=== PATIENT | female | born 1995 | race Caucasian/White ===

== ENCOUNTER 2016-12-12 21:22 | Emergency (ER) | payer OTHER ==
[2016-12-12 21:29] VITALS: BP 112/63
[2016-12-12 22:03] LABS: Hematocrit 39 % (35-47); Hemoglobin 13.5 g/dl (12.0-16.0); Mean Corpuscular HGB Conc 34 g/dl (31-36); Mean Corpuscular Hemoglobin 31 pg (27-31); Mean Corpuscular Volume 92 fL (80-97); Mean Platelet Volume 8 um3 (7.4-10.4); Red Blood Count 4.29 10^6/ul (4.0-5.4); Red Cell Distribution Width 13 % (10.5-15); White Blood Count 12.2 10^3/ul (3.5-10.8)
[2016-12-12 22:04] LABS: Add Diff/Slide Review? Slide Review Added; Comments Flag Yes
--- NOTE | 2016-12-12 22:06 | ED ---
- HPI Summary HPI Summary: 21F who is 14 weeks LMP Nov presents with constant back and lower quadrant abdominal pain for 2 days. She states the pain has been getting worst. She spoke with obgyn [email or web address] of [place] told her to take Tylenol and if got worst to go to ED. She denies any vaginal discharge or bleeding. She denies any dysuria but does admit to pressure when urinates. She has never experienced this pain before. She has a history of constipation but states that she had a normal BM today. She denies any previous abdominal surgeries. She denies any fever, n/v/d. She describes the pain as a rope around her waist that is pulling tight. - History of Current Complaint Chief Complaint: EDAbdPain Stated Complaint: ABD AND BACK PAIN/3 MONTHS PREG Time Seen by Provider: 12/12/16 21:38 Pain Intensity: 6 - Assessment Hx Now: Yes - 10-11 WEEKS SAB: 0 IEA: 0 - Additional Pertinent History Maternal Blood Type and Rh: O Positive - Allergies/Home Medications Allergies/Adverse Reactions: Allergies Allergy/AdvReac Type Severity Reaction Status Date / Time No Known Allergies Allergy Verified 10/09/14 21:57 PMH/Surg Hx/FS Hx/Imm Hx Endocrine/Hematology History: Reports: Hx Thyroid Disease - pt states has not taken synthriod in 4 days History: Reports: Other Problems/Disorders - Hx of UTI Neurological History: Reports: Other Neuro Impairments/Disorders - Hx of Asperger Psychiatric History: Reports: Hx Anxiety, Hx Attention Deficit Hyperactivity Disorder, Hx Eating Disorder - restricting, Hx Depression, Hx Community Mental Health Tx - Sees Anya Maki and Dr. Mendez at [facility], Hx Substance Abuse, Other Psychiatric Issues/Disorders - aspergers Denies: Hx of Violent Episodes Against Others - Surgical History Surgery Procedure, Year, and Place: Hx of two C-sec - Immunization History Date of Influenza Vaccine: 06/2016 Infectious Disease History: No Infectious Disease History: Denies: Traveled Outside the [place] in Last 30 Days - Family History Known Family History: Positive: Cardiac Disease - Social History Alcohol Use: Occasionally Substance Use Type: Reports: None Smoking Status (MU): Light Every Day Tobacco Smoker Have You Smoked in the Last Year: Yes Review of Systems Negative: Fever Negative: Chest Pain Negative: Shortness Of Breath Positive: Abdominal Pain. Negative: Vomiting, Diarrhea, Nausea All Other Systems Reviewed And Are Negative: Yes Physical Exam - Physical Exam Triage Information Reviewed: Yes Vital Signs Reviewed: Yes Appearance: Positive: Well-Appearing Skin: Positive: Warm, Dry ENT: Positive: Normal ENT inspection, TMs normal Respiratory/Lung Sounds: Positive: Clear to Auscultation, Breath Sounds Present Cardiovascular: Positive: Normal, RRR Abdomen Description: Positive: Soft, Other: - diffusely tender to palpation,. Negative: CVA Tenderness (R), CVA Tenderness (L), Guarding Diagnostics - Vital Signs Vital Signs Temp Pulse Resp BP Pulse Ox 12/12/16 21:24 98.0 F 108 16 112/63 99 - Laboratory Result Diagrams: 12/12/16 21:44 12/12/16 21:44 Lab Statement: Any lab studies that have been ordered have been reviewed, and results considered in the medical decision making process. Course/Dx - Course Course Of Treatment: 21F @14 weeks presents with lower abdominal pain and back pain for 2 days, denies any other symptoms, has never had this pain before, pain is getting worst and is not relieved with tyenlol. on exam diffusely tender abdomen. will get labs and HR, HR 140. labs : elevated wbc 12, crp 40, discussed with dr gee states does not sound ob related, common to have elevated wbc in , does not seem like gallbladder or appendix due to diffuse abdominal pain, urine returned and has uti, discussed that has some protein with dr fox and states due to uti and not being hypertensive is not significant at this time, will treat with macrobid and have call obgyn tomorrow, patient understand and agrees with plan - Differential Diagnosis/HQI/PQRI: Appendicitis, Cholecystitis, Intrauterine , UTI - Diagnoses Provider Diagnoses: UTI in , Abdominal pain - Provider Notifications Discussed Care Of Patient With: dr gee Time Discussed With Above Provider: 22:44 - does not seem like pain is related, have call office tomorrow to see how doing Discharge - Discharge Plan Condition: Good Disposition: HOME Prescriptions: Nitrofurantoin Monohyd Macro [Macrobid] 100 mg PO BID #13 cap Patient Education Materials: Urinary Tract Infection in (ED) Referrals: Danita Nieves MD [Primary Care Provider] - Additional Instructions: Take macrobid twice a day for 7 days, first dose given in ED After course of antibiotics go to primary to have repeat culture done to make sure UTI resolved Take Tylenol every 6 hours for pain as needed Call obgyn tomorrow to discuss symptoms Return to ED if develop vaginal bleeding, fever, or any new or worsening symptoms
[2016-12-12 22:16] LABS: Albumin 3.8 g/dL (3.2-5.2); BUN/Creatinine Ratio 11.3 (8-20); Calcium 9.5 mg/dL (8.6-10.3); EGFR African American 153.4 (>60); EGFR Non-African American 119.3 (>60); Globulin 3.5 g/dL (2-4); Potassium 3.6 mmol/L (3.5-5.0); Total Bilirubin 0.7 mg/dL (0.2-1.0); Total Protein 7.3 g/dL (6.4-8.9)
[2016-12-12 22:32] LABS: Urine Bacteria 1+ (Absent); Urine Bilirubin Negative (Negative); Urine Glucose Negative (Negative); Urine Nitrite Positive (Negative)
[2016-12-12] MEDS ORDERED: Nitrofurantoin Macrocrystals* 100 MG CAP PO ONE (22:37)
--- NOTE | 2016-12-15 10:08 | PN ---
Progress Note - Progress Note Note: Patient seen on 12/12/16 diagnosed with a UTI and started on Macrobid. Urine culture preliminary results grew E coli >100,000. Patient was discharged on Macrobid. Waiting for final results and susceptibility results before contacting patient to see if symptoms have resolved. No change in medication needed at this time.
--- NOTE | 2016-12-16 10:11 | PN ---
Progress Note - Progress Note Note: Talked to patient on phone at 10:07am after receiving final urine culture results. Patient states her symptoms have been improving each day. She followed up with her primary care doctor who she states changed her medication. She was prescribed Nitrofurantoin through ED and had it switched to what she thinks is Bactrim. She was at work and was unsure of the antibiotic name. Both antibiotics showed that the e.coli was susceptible. Patient is aware of worsening signs and symptoms and told to return if needed. No further changes needed at this time.
== END 2016-12-12 23:00 | disposition home or self-care (01) ==
LOC: ED 21:22
DX: O23.42 Unspecified infection of urinary tract in pregnancy, second trimester (principal); Z3A.14 14 weeks gestation of pregnancy; R10.9 Unspecified abdominal pain
CPT/HCPCS: 36415; 80053; 81003; 81015; 85025; 86141; 87077; 87086; 87186; 99282; A9270-GY

== ENCOUNTER 2017-01-06 19:45 | Emergency (ER) | payer MEDICAID, OTHER ==
--- NOTE | 2017-01-06 20:27 | UC ---
UC General HPI - HPI Summary HPI Summary: The patient comes in today for: 1. Headaches, stomach ache, rhinitis, sore throat, nausea, dizziness ( spinning sensation), blurred vision, muscle pain: Onset: 8 days. Palliative/provocative: Riding in the car makes it worse (nausea is worse). Concentration makes it worse. Quality: Ache, nausea, soreness, Region: head, muscle. Severity: 4/10 Time: headache and sore throat is constant. Muscle aches come and go. Associated symptoms: : 18 weeks as best she can tell. Chest pain: The male jewelry sorter states that the patient told him that starting about 3 PM every time she breathed out, it felt like "hammers hitting" her chest. She will have this "every now and then" A0 with LMP of 11-16. Palpitations: None. Blood clotting disease: (-) in her and (-) in her family. * - History of Current Complaint Chief Complaint: UCRespiratory Stated Complaint: PREG & DIZZY,CHEST DISCOMFORT Time Seen by Provider: 01/06/17 19:58 Hx Obtained From: Patient, Family/Pelt Shearer - Allergy/Home Medications Allergies/Adverse Reactions: Allergies Allergy/AdvReac Type Severity Reaction Status Date / Time No Known Allergies Allergy Verified 01/06/17 20:06 PMH/Surg Hx/FS Hx/Imm Hx Previously Healthy: No Endocrine History Of: Reports: Thyroid Disease - pt states has not taken synthriod in 4 days, Hypothyroidism Denies: Diabetes, Hyperthyroidism, Dyslipidemia Cardiovascular History Of: Denies: Cardiac Disorders, Hypertension, Pacemaker/ICD, Myocardial Infarction , Congestive Heart Failure, Atrial Fibrillation, Deep Vein Thrombosis, Bleeding Disorders Respiratory History Of: Denies: COPD, Asthma, Bronchitis, Pneumonia, Pulmonary Embolism GI/ History Of: Denies: Gastroesophageal Reflux, Ulcer, Gastrointestinal Bleed, Gall Bladder Disease, Kidney Stones, Diverticulitis, Renal Disease, Urosepsis Neurological History Of: Denies: TIA, CVA, Dementia, Seizures, Migraine Psychological History Of: Reports: Anxiety, Depression Denies: Bipolar Disorder, Schizophrenia, Post Traumatic Stress Disorder Cancer History Of: Denies: Lung Cancer, Colorectal Cancer, Breast Cancer, Prostate Cancer, Cervical Cancer Other History Of: Negative For: HIV, Hepatitis B, Hepatitis C, Anticoagulant Therapy - Surgical History Surgical History: Yes Surgery Procedure, Year, and Place: Hx of two C-sec - Family History Known Family History: Negative: Cardiac Disease, Hypertension, Blood Disorder - Social History Occupation: Employed Full-time Alcohol Use: None Substance Use Type: None Smoking Status (MU): Light Every Day Tobacco Smoker Amount Used/How Often: 4 per day Have You Smoked in the Last Year: Yes Household Exposure Type: Cigarettes - Immunization History Most Recent Influenza Vaccination: fall 2015 Most Recent Tetanus Shot: years Most Recent Pneumonia Vaccination: never Review of Systems Constitutional: Negative Skin: Negative Eyes: Negative ENT: Sore Throat, Nasal Discharge - Clear Respiratory: Cough - N Cardiovascular: Chest Pain - Very slightly. Gastrointestinal: Negative Genitourinary: Negative Musculoskeletal: Arthralgia - Lower abdomen and up the left side., Myalgia All Other Systems Reviewed And Are Negative: Yes Physical Exam Triage Information Reviewed: Yes Appearance: Well-Appearing, No Pain Distress, Well-Nourished Vital Signs: Initial Vital Signs Temp 98.2 F 01/06/17 19:57 Pulse 103 01/06/17 19:57 Resp 103 01/06/17 19:57 BP 104/78 01/06/17 19:57 Pulse Ox 98 01/06/17 19:57 Vital Signs Reviewed: Yes Eyes: Positive: Conjunctiva Clear. Negative: Discharge ENT: Positive: Hearing grossly normal, Pharyngeal erythema. Negative: TM bulging, TM dull, TM red, Tonsillar swelling, Tonsillar exudate Dental: Negative: Gross Decay/Caries @, Dental Fracture @ Neck: Positive: Supple, Nontender, No Lymphadenopathy. Negative: Nuchal Rigidity Respiratory: Positive: Lungs clear, No respiratory distress, No accessory muscle use, Other: - No chest tenderness. Despite her complaining of this "hammer" chest pain she appears comfortable sitting on cot.. Negative: Accessory muscle use, Rhonchi, Stridor, Wheezing Cardiovascular: Positive: RRR, No Murmur Abdomen Description: Positive: No Organomegaly, Soft. Negative: Nontender - She has very mild tenderness to palpation of the left lower quadrant. There was no rebound or percussion tenderness., Distended, Guarding Musculoskeletal: Positive: Strength Intact, ROM Intact, No Edema Neurological: Positive: Alert Psychological: Positive: Age Appropriate Behavior, Consolable Skin: Negative: rashes, breakdown Diagnostics - Laboratory Diagnostic Studies Completed/Ordered: Rapid flu: (-). EKG: Rate: 103. Rhythm : sinus. Ectopy: None. Acute changes: None. No obvious [id number] Course/Dx - Course Course Of Treatment: Patient was told that there are many things that may cause chest pain and one I would be worried about is pulmonary embolism. She was told that we are not able to rule this out and to do so, she would have to go to the ER. She agreed to go by private car. - Differential Dx - Multi-Symptom Provider Diagnoses: Chest pain. 18 week . Viral syndrome - Physician Notifications Discussed Patient Care With: Meagan Diaz Time Discussed With Above Provider: 21:21 Discharge - Discharge Plan Condition: Stable Disposition: AGAINST MEDICAL ADVICE Additional Instructions: Patient left by private car to go to [facility].
[2017-01-06 21:24] VITALS: BP 105/67
== END 2017-01-06 21:52 | disposition left against medical advice (07) ==
LOC: UCEAST 19:45
DX: O26.892 Other specified pregnancy related conditions, second trimester (principal); Z3A.18 18 weeks gestation of pregnancy; R07.89 Other chest pain; B34.9 Viral infection, unspecified; F17.210 Nicotine dependence, cigarettes, uncomplicated
CPT/HCPCS: 87502; 93005; 99212; G0463

== ENCOUNTER 2017-01-06 21:39 | Emergency (ER) | payer MEDICAID ==
[2017-01-06] MEDS ORDERED: Azithromycin TAB* 250 MG PO ONE (23:58)
[2017-01-06] MEDS ORDERED: Cyclobenzaprine TAB* 10 MG PO ONE (23:59)
--- NOTE | 2017-01-07 00:01 | ED ---
Karen Jha Claudia, scribed for Samira Virk MD on 01/06/17 at 2303 . Complex/Multi-Sys Presentation - HPI Summary HPI Summary: 21 year old female presents to the ED with multi-Sx. Pt notes Sx for the past week but worsening over the past few days. Pt admits to cough, sinus pressure, nasal congestion. She also notes aggravated pounding pressure in her chest during expiration. Pt is 18 weeks para 3 2. Pt also admits to dizziness earlier today and a pulled muscle in her abdomen after exerting herself by helping her boyfriend put a screen in the window. Pt notes the pain in her abdomen is movement related. Pt notes that the SOB has been accompanied by the cold Sx and she denies any calf pain or PMHx of FHx of DVT or PE. - History Of Current Complaint Chief Complaint: EDFluSymptoms Time Seen by Provider: 01/06/17 22:13 Hx Obtained From: Patient Onset/Duration: Lasting Weeks, Still Present Timing: Constant Associated Signs And Symptoms: Positive: SOB, Cough, Other - nasal discharge, sinus pressure - Allergies/Home Medications Allergies/Adverse Reactions: Allergies Allergy/AdvReac Type Severity Reaction Status Date / Time No Known Allergies Allergy Verified 01/06/17 20:06 PMH/Surg Hx/FS Hx/Imm Hx Previously Healthy: Yes Endocrine/Hematology History: Reports: Hx Thyroid Disease - pt states has not taken synthriod in 4 days Denies: Hx Anticoagulant Therapy, Hx Diabetes Cardiovascular History: Denies: Hx Congestive Heart Failure, Hx Deep Vein Thrombosis, Hx Hypertension , Hx Myocardial Infarction, Hx Pacemaker/ICD Respiratory History: Denies: Hx Asthma, Hx Chronic Obstructive Pulmonary Disease (COPD), Hx Lung Cancer, Hx Pneumonia, Hx Pulmonary Embolism GI History: Denies: Hx Gall Bladder Disease, Hx Gastrointestinal Bleed, Hx Ulcer, Hx Urosepsis History: Reports: Other Problems/Disorders - Hx of UTI Denies: Hx Kidney Stones, Hx Renal Disease Neurological History: Reports: Other Neuro Impairments/Disorders - Hx of Asperger Denies: Hx Dementia, Hx Migraine, Hx Seizures, Hx Transient Ischemic Attacks (TIA) Psychiatric History: Reports: Hx Anxiety, Hx Attention Deficit Hyperactivity Disorder, Hx Eating Disorder - restricting, Hx Depression, Hx Community Mental Health Tx - Sees Anya Maki and Dr. Mendez at [facility], Hx Substance Abuse, Other Psychiatric Issues/Disorders - aspergers Denies: Hx Schizophrenia, Hx Bipolar Disorder, Hx of Violent Episodes Against Others - Surgical History Surgery Procedure, Year, and Place: Hx of two C-sec - Immunization History Date of Influenza Vaccine: 06/2016 Infectious Disease History: No Infectious Disease History: Denies: Traveled Outside the [place] in Last 30 Days - Family History Known Family History: Negative: Cardiac Disease, Hypertension, Blood Disorder - Social History Lives: With Family Alcohol Use: None Substance Use Type: Reports: None Smoking Status (MU): Light Every Day Tobacco Smoker Amount Used/How Often: 4 per day Have You Smoked in the Last Year: Yes Review of Systems Constitutional: Negative Eyes: Negative ENT: Other - sinus pressure Positive: Nasal Discharge Cardiovascular: Negative Positive: Shortness Of Breath, Cough Gastrointestinal: Negative Genitourinary: Negative Positive: Other - muslce ache to her left abdomen Skin: Negative Neurological: Negative Psychological: Normal All Other Systems Reviewed And Are Negative: Yes Physical Exam Triage Information Reviewed: Yes Vital Signs On Initial Exam: Initial Vitals Temp Pulse Resp BP Pulse Ox 97.7 F 90 18 105/60 100 01/06/17 21:50 01/06/17 21:50 01/06/17 21:50 01/06/17 21:50 01/06/17 21:50 Vital Signs Reviewed: Yes Appearance: Positive: Well-Appearing, No Pain Distress Skin: Positive: Warm, Skin Color Reflects Adequate Perfusion, Dry Eyes: Positive: EOMI, MARIBELL ENT: Positive: Pharynx normal, TMs normal Neck: Positive: Supple, Nontender Respiratory/Lung Sounds: Positive: Clear to Auscultation, Breath Sounds Present Cardiovascular: Positive: RRR. Negative: Murmur, Rub, Leg Edema Left, Leg Edema Right Abdomen Description: Positive: Nontender, Soft. Negative: Distended, Guarding Musculoskeletal: Positive: Strength/ROM Intact Neurological: Positive: Sensory/Motor Intact, Alert, Oriented to Person Place, Time, CN Intact II-III Psychiatric: Positive: Affect/Mood Appropriate - Houck Coma Scale Coma Scale Total: 15 Diagnostics - Vital Signs Vital Signs Temp Pulse Resp BP Pulse Ox 01/06/17 22:33 98 F 81 18 103/42 98 01/06/17 21:50 97.7 F 90 18 105/60 100 - Laboratory Lab Statement: Any lab studies that have been ordered have been reviewed, and results considered in the medical decision making process. Complex Multi-Symp Course/Dx Course Of Treatment: very much doubt pe in this pt with cp with cough with uri sxms x 8 days. covering with azithro and flexeril for muscle strain both safe with - Diagnoses Provider Diagnoses: Bronchitis, Muscle strain Discharge - Discharge Plan Condition: Stable Disposition: HOME Prescriptions: Azithromycin TAB* [Zithromax TAB (Z-RADHA) 250 mg #6 tabs] 250 mg PO DAILY #4 tab Cyclobenzaprine TAB* [Flexeril 10 MG TAB*] 10 mg PO TID PRN #14 tab PRN Reason: Spasms Referrals: Danita Nieves MD [Primary Care Provider] - The documentation as recorded by the Karen altamirano Claudia accurately reflects the service I personally performed and the decisions made by , Samira Virk MD.
[2017-01-07 00:22] VITALS: BP 108/58
== END 2017-01-07 00:22 | disposition home or self-care (01) ==
LOC: ED 21:39
DX: J40 Bronchitis, not specified as acute or chronic (principal); R42 Dizziness and giddiness; R06.02 Shortness of breath; R05 Cough; F17.210 Nicotine dependence, cigarettes, uncomplicated; T14.8 Other injury of unspecified body region; X58.XXXA Exposure to other specified factors, initial encounter; Y93.9 Activity, unspecified; Y92.9 Unspecified place or not applicable; Y99.9 Unspecified external cause status; Z34.82 Encounter for supervision of other normal pregnancy, second trimester
CPT/HCPCS: 99282; A9270-GY

== ENCOUNTER 2017-04-02 15:27 | Emergency (ER) | payer OTHER ==
[2017-04-02 16:02] VITALS: BP 108/63
--- NOTE | 2017-04-02 16:16 | UC ---
Skin Complaint HPI - HPI Summary HPI Summary: PT NOTICED A FAINT RED JULIANO ON HER RIGHT FOREARM TODAY AND THOUGHT IT MIGHT BE FROM A TICK SO CAME IN FOR EVAL. NOT PAINFUL OR ITCHY. SHE IS FEELING OTHERWISE WELL. NO LUNDY, FEVER, JOINT PAIN OR BODY ACHES. IS 30 WEEKS . DURING TRIAGE PT ASKED ROUTINE SCREENING QUESTION ABOUT FEELINGS OF SELF HARM AND PT RESPONDED "NOT NOW - IT'S TAKEN CARE OF". UPON FURTHER QUESTIONING PT REPORTS THAT SHE SEES A COUNSELOR AND A PSYCHIATRIST THROUGH [facility] WEEKLY. NEXT APPT IS THIS TUESDAY AT 3:15PM. SHE DOES NOT CURRENTLY HAVE ANY SI/HI. - History of Current Complaint Chief Complaint: UCSkin Time Seen by Provider: 04/02/17 16:07 Stated Complaint: TICK BITE Hx Obtained From: Patient Onset/Duration: Still Present Timing: Constant Current Severity: None Pain Intensity: 0 Pain Scale Used: 0-10 Numeric Location: Discrete - RIGHT FOREARM Aggravating: Nothing Alleviating: Nothing Associated Signs & Symptoms: Positive: Negative - Allergy/Home Medications Allergies/Adverse Reactions: Allergies Allergy/AdvReac Type Severity Reaction Status Date / Time No Known Allergies Allergy Verified 04/02/17 16:02 Home Medications: Home Medications Gabapentin CAP(*) [Neurontin 100 mg CAP(*)] 100 mg PO TID 04/02/17 [History Confirmed 04/02/17] Vitamin TAB* 1 tab PO DAILY 04/02/17 [History Confirmed 04/02/17] Review of Systems Constitutional: Negative Skin: Rash Respiratory: Negative Cardiovascular: Negative Gastrointestinal: Negative All Other Systems Reviewed And Are Negative: Yes PMH/Surg Hx/FS Hx/Imm Hx Endocrine History: Hypothyroidism Other History Of: Negative For: HIV, Hepatitis B, Hepatitis C, Anticoagulant Therapy - Surgical History Surgical History: Yes Surgery Procedure, Year, and Place: Hx of two C-sec - Family History Known Family History: Negative: Cardiac Disease, Hypertension, Blood Disorder - Social History Alcohol Use: None Substance Use Type: None Smoking Status (MU): Current Every Day Smoker Amount Used/How Often: 4 per day Have You Smoked in the Last Year: Yes Household Exposure Type: Cigarettes - Immunization History Most Recent Influenza Vaccination: fall 2015 Most Recent Tetanus Shot: years Most Recent Pneumonia Vaccination: never Physical Exam Triage Information Reviewed: Yes Appearance: Well-Appearing, No Pain Distress, Well-Nourished Vital Signs: Initial Vital Signs Temp 98.9 F 04/02/17 15:55 Pulse 84 04/02/17 15:55 Resp 16 04/02/17 15:55 BP 108/63 04/02/17 15:55 Pulse Ox 100 04/02/17 15:55 Vital Signs Reviewed: Yes Eyes: Positive: Conjunctiva Clear ENT: Positive: Hearing grossly normal Neck: Positive: Supple Respiratory: Positive: No respiratory distress, No accessory muscle use Cardiovascular: Positive: Pulses Normal Abdomen Description: Positive: Soft Musculoskeletal: Positive: No Edema Neurological: Positive: Alert Psychological: Positive: Age Appropriate Behavior Skin: Positive: Other - 1CM FAINT RED JULIANO RIGHT FOREARM. NO EXCORIATION. NOT TENDER. NOT INDURATED, Course/Dx - Diagnoses Provider Diagnoses: LIKELY LOCAL SKIN REACTION TO INSECT BITE Discharge - Discharge Plan Condition: Stable Disposition: HOME Patient Education Materials: Insect Bite or Sting (ED) Referrals: Danita Nieves MD [Primary Care Provider] - If Needed Additional Instructions: THE JULIANO ON YOUR FOREARM MAY BE FROM AN INSECT BITE BUT IT DOES NOT HAVE A CONCERNING APPEARANCE. IT IS NOT THE LYME DISEASE RASH AND IT DOES NOT LOOK INFECTED. NO ACUTE INTERVENTION INDICATED TODAY. KEEP AN EYE ON IT AND BE SEEN AGAIN IF IT WORSENS.
== END 2017-04-02 16:48 | disposition home or self-care (01) ==
LOC: UCEAST 15:27
DX: S50.861A Insect bite (nonvenomous) of right forearm, initial encounter (principal); W57.XXXA Bitten or stung by nonvenomous insect and other nonvenomous arthropods, initial encounter; Y93.9 Activity, unspecified; Y92.9 Unspecified place or not applicable; E03.9 Hypothyroidism, unspecified; F17.210 Nicotine dependence, cigarettes, uncomplicated
CPT/HCPCS: 99211; G0463

== ENCOUNTER 2017-05-30 10:08 | Inpatient (IN) | payer OTHER ==
[2017-05-30] MEDS ORDERED: Sodium Citrate/Citric Acid* 15 ML UDC PO ONE (13:32)
[2017-05-30] MEDS ORDERED: Morphine PF AMP (0.5MG/ML)* 5 MG/10 ML AMP ONE (13:42)
[2017-05-30] MEDS ORDERED: OXYTOCIN* 10 UNITS/ML 1 ML VIAL ONE ×3 (13:43→15:00)
[2017-05-30] MEDS ORDERED: Ondansetron INJ* 2 MG/ML VIAL ONE (13:43)
[2017-05-30 13:51] LABS: Hematocrit 37 % (35-47); Hemoglobin 12.7 g/dl (12.0-16.0); Mean Corpuscular HGB Conc 34 g/dl (31-36); Mean Corpuscular Hemoglobin 30 pg (27-31); Mean Corpuscular Volume 87 fL (80-97); Mean Platelet Volume 9 um3 (7.4-10.4); Red Blood Count 4.31 10^6/ul (4.0-5.4); Red Cell Distribution Width 14 % (10.5-15); White Blood Count 9.4 10^3/ul (3.5-10.8)
[2017-05-30] MEDS ORDERED: ceFOXitin 2 GM IVPREMIX* 2 GM/50 ML BAG IVPB ONE (14:00)
[2017-05-30] MEDS ORDERED: Phenylephrine IV* 40 MCG/ML 10 ML SYRINGE ONE (14:20)
[2017-05-30] MEDS ORDERED: DiMENhydriNATE IV* 50 MG/ML VIAL IV PUSH PRN (14:54)
[2017-05-30] MEDS ORDERED: Ketorolac INJ* 30 MG/ML 1 ML VIAL IV PRN (14:54)
[2017-05-30] MEDS ORDERED: fentaNYL* 50 MCG/ML 2 ML VIAL (100 MCG VIAL) IV PRN (14:54)
[2017-05-30] MEDS ORDERED: Naloxone* 0.4 MG/ML 1 ML VIAL IV PRN (14:55)
[2017-05-30] MEDS ORDERED: oxyCODONE/Acetamin 5/325 MG* TAB PO PRN (14:55)
[2017-05-30] MEDS ORDERED: Naloxone* 2 MG in NS 0.9% 250 ML* 250 ML IV PRN (14:55)
[2017-05-30] MEDS ORDERED: Ondansetron INJ* 2 MG/ML VIAL IV PRN (14:55)
[2017-05-30] MEDS ORDERED: Nalbuphine* 20 MG/ML 1 ML VIAL IV PRN (14:55)
[2017-05-30] MEDS ORDERED: Witch Hazel PAD* JAR TOPICAL PRN (15:26)
[2017-05-30] MEDS ORDERED: Glycerin ADULT SUPP PR PRN (15:26)
[2017-05-30] MEDS: Gabapentin CAP(*) 300 MG PO SCH ×2 (19:08→21:23)
[2017-05-30] MEDS: Simethicone CHEW TAB* 80 MG PO SCH ×2 (19:09→21:08)
[2017-05-30] MEDS: Docusate CAP* 100 MG PO SCH (21:08)
[2017-05-30] MEDS: Ibuprofen TAB* 600 MG PO PRN (21:08)
--- NOTE | 2017-05-31 02:26 | OP ---
DATE OF OPERATION: 05/30/17 - ROOM #MCHOB-104 DATE OF : 89 SURGEON: Jose Roche MD PRESS CLIPPER: Dr. Da Silva and Michael De La Fuente CNM ANESTHESIA: Spinal. PRE-OP DIAGNOSIS: 38 plus 5 weeks gestation in active labor with severe anxiety disorder, and satisfied parity. POST-OP DIAGNOSIS: 38 plus 5 weeks gestation in active labor with severe anxiety disorder, and satisfied parity. OPERATIVE PROCEDURE: Primary low transverse section and bilateral tubal ligation. ESTIMATED BLOOD LOSS: 600 cc. URINE OUTPUT: 200 cc. IV FLUIDS: 2300 cc lactated Ringer's. MATERIALS TO LAB: Cord blood and tubal segments. INDICATIONS: This patient was a 21-year-old 3, para 2 at 38 plus 5 weeks gestation. The patient has strongly desired a primary section due to her PTSD-type symptoms from her first and second deliveries. The patient has a history of severe anxiety and Asperger syndrome. The patient also desired to have permanent sterilization performed. She was extensively counseled regarding the risks of surgery as well as the benefits of a vaginal delivery and she desired to proceed. The consent was signed. The patient then presented in early labor today, 2 days prior to her scheduled , and when her cervix changed from 3 to 6 cm, we proceeded with the . FINDINGS: Normal-appearing uterus, fallopian tubes, and ovaries. Delivery was productive of a female , weighing 6 pounds 1 ounce with Apgars of 9 and 9. Time of delivery was 1432. COMPLICATIONS: None. DESCRIPTION OF PROCEDURE: The risks, benefits, and alternatives were described to the patient and informed consent was obtained. The patient was taken to the operating room with IV running where spinal anesthesia was induced and found to be adequate. The patient was prepped and draped in the normal sterile fashion in the dorsal supine position with a leftward tilt. A Pfannenstiel skin incision was made with a scalpel and this was carried down to the underlying fascia sharply. The fascia was then scored in the midline with the scalpel. The incision was extended using Lind scissors. The rectus muscles were dissected off the rectus fascia using blunt and sharp dissection. The rectus muscles were in the midline bluntly. The peritoneum was also entered bluntly. A bladder blade was placed. A bladder flap was created sharply using Metzenbaum scissors. A low transverse uterine incision was made with the scalpel. This was carried down to the amniotic cavity which was productive of clear fluid. The incision was extended with blunt traction. The head was elevated to the level of the incision without difficulty and delivered through the incision. With fundal pressure, the shoulders and body delivered without difficulty. The infant had excellent tone and cried immediately on delivery. The cord was doubly clamped and cut. The was then handed to the awaiting heavy repairer. Cord blood was collected. The placenta then delivered with manual extraction. The uterus was then exteriorized and cleared of all clots and debris. The membranes were very adherent but removed completely. The uterine incision was reapproximated using 0 Polysorb in a running-locked fashion. A second layer of imbricating sutures of 0 Polysorb was also placed with good hemostasis. The posterior cul-de-sac was irrigated with saline. The right fallopian tube was grasped with a rocio, and a long Claudia clamp was used to clamp off the distal half of the tube including the fimbria. This was tied off with two stitches of 3-0 Polysorb. The segment was then excised with Metzenbaum scissors with good hemostasis. The same was then performed on the left tube. The uterus was then returned to the abdomen, and the incision and tubal sites were reinspected and noted to be hemostatic. The peritoneum was closed with 3-0 Polysorb in a running fashion. The fascia was closed with 0 Polysorb in a running fashion. Subcutaneous tissues were irrigated and made hemostatic with the Bovie. The skin was then closed with 4-0 Monocryl in a subcuticular stitch. Mastisol and Steri-Strips were placed over the incision which was then covered with a sterile bandage. The patient tolerated the procedure well. Sponge, lap, and needle counts were correct x2. [id number]/[facility] #: [id number] MTDD
[2017-05-31] MEDS: Ibuprofen TAB* 600 MG PO PRN (03:38)
[2017-05-31] MEDS: Ibuprofen TAB* 600 MG PO SCH ×3 (06:32→21:03)
[2017-05-31 06:36] LABS: Hematocrit 32 % (35-47); Hemoglobin 10.4 g/dl (12.0-16.0); Mean Corpuscular HGB Conc 33 g/dl (31-36); Mean Corpuscular Hemoglobin 29 pg (27-31); Mean Corpuscular Volume 87 fL (80-97); Mean Platelet Volume 9 um3 (7.4-10.4); Red Blood Count 3.65 10^6/ul (4.0-5.4); Red Cell Distribution Width 14 % (10.5-15); White Blood Count 16.6 10^3/ul (3.5-10.8)
[2017-05-31] MEDS ORDERED: Lidocaine 1% MPF* 2 ML VIAL ONE (06:54)
[2017-05-31] MEDS ORDERED: oxyCODONE/Acetamin 5/325 MG* TAB PO PRN ×2 (06:55)
[2017-05-31] MEDS: Levothyroxine TAB* 175 MCG TAB PO SCH (07:20)
[2017-05-31] MEDS: Simethicone CHEW TAB* 80 MG PO SCH ×3 (09:37→21:03)
[2017-05-31] MEDS: Docusate CAP* 100 MG PO SCH ×3 (09:37→21:03)
[2017-05-31] MEDS: Sertraline* 50 MG TAB PO SCH (09:37)
[2017-05-31] MEDS: Ferrous Gluconate TAB* 324 MG TAB PO SCH (09:38)
[2017-05-31] MEDS: Gabapentin CAP(*) 300 MG PO SCH ×3 (10:01→21:04)
[2017-06-01] MEDS: Ibuprofen TAB* 600 MG PO SCH ×4 (04:52→17:47)
[2017-06-01] MEDS: Levothyroxine TAB* 175 MCG TAB PO SCH (06:28)
[2017-06-01] MEDS: Ferrous Gluconate TAB* 324 MG TAB PO SCH (08:29)
[2017-06-01] MEDS: Simethicone CHEW TAB* 80 MG PO SCH ×5 (08:29→21:56)
[2017-06-01] MEDS: Gabapentin CAP(*) 300 MG PO SCH ×3 (08:31→21:56)
[2017-06-01] MEDS: Docusate CAP* 100 MG PO SCH ×3 (08:31→21:55)
[2017-06-01] MEDS: Sertraline* 50 MG TAB PO SCH (08:32)
[2017-06-01] MEDS ORDERED: Mouth Piece, Nicotine* 1 EACH CARTRIDGE INH SCH (20:33)
[2017-06-01] MEDS ORDERED: Nicotine Inhaler* 10 MG AMP INH PRN (20:33)
[2017-06-01] MEDS ORDERED: Mouth Piece, Nicotine* 1 EACH CARTRIDGE INH ONE (22:00)
[2017-06-02] MEDS: Levothyroxine TAB* 175 MCG TAB PO SCH (06:17)
[2017-06-02] MEDS: Ibuprofen TAB* 600 MG PO SCH ×2 (06:17)
[2017-06-02] MEDS: Sertraline* 50 MG TAB PO SCH (07:47)
[2017-06-02] MEDS: Gabapentin CAP(*) 300 MG PO SCH (07:47)
[2017-06-02] MEDS: Simethicone CHEW TAB* 80 MG PO SCH (07:48)
[2017-06-02] MEDS: Docusate CAP* 100 MG PO SCH (07:48)
[2017-06-02 08:00] VITALS: BP 124/60
== END 2017-06-02 13:30 | disposition home or self-care (01) | DRG 540 ==
LOC: MCHOBOUT 10:08 → MCHOB 13:21
PROVIDERS: ADMIT Obstetrics & Gynecology; ATTEND Obstetrics & Gynecology
PROC: 4A1HXCZ Monitoring of Products of Conception, Cardiac Rate, External Approach (ICD-10-PCS; 2017-05-30)
PROC: 0UB70ZZ Excision of Bilateral Fallopian Tubes, Open Approach (ICD-10-PCS; 2017-05-30)
PROC: 10D00Z1 Extraction of Products of Conception, Low, Open Approach (ICD-10-PCS; principal; 2017-05-30 14:06)
DX: O99.344 Other mental disorders complicating childbirth (principal); F84.5 Asperger's syndrome; F32.9 Major depressive disorder, single episode, unspecified; O99.334 Smoking (tobacco) complicating childbirth; F17.210 Nicotine dependence, cigarettes, uncomplicated; Z3A.38 38 weeks gestation of pregnancy; Z37.0 Single live birth; O99.284 Endocrine, nutritional and metabolic diseases complicating childbirth; E03.9 Hypothyroidism, unspecified; F41.9 Anxiety disorder, unspecified; Z30.2 Encounter for sterilization
CPT/HCPCS: 36415; 85025; 86850; 86870; 86880; 86900; 86901; 88302; A9270-GY; J0694; J1885; J2405; J2590

== ENCOUNTER 2017-09-08 09:39 | Emergency (ER) | payer OTHER ==
--- NOTE | 2017-09-08 09:57 | UC ---
Throat Pain/Nasal Juan R HPI - HPI Summary HPI Summary: Sore throat for 2 weeks , others in the family with viral URI Symptoms - History of Current Complaint Chief Complaint: UCRespiratory Stated Complaint: POSS STREPH Time Seen by Provider: 09/08/17 09:43 Hx Obtained From: Patient Hx Last Menstrual Period: breast feeding ?: No Onset/Duration: Gradual Onset, Lasting Weeks - 2 Severity: Moderate Cough: None Associated Signs & Symptoms: Positive: Negative Related History: Smoking - Allergies/Home Medications Allergies/Adverse Reactions: Allergies Allergy/AdvReac Type Severity Reaction Status Date / Time No Known Allergies Allergy Verified 05/14/17 00:46 PMH/Surg Hx/FS Hx/Imm Hx Previously Healthy: No - Substance abuse disorder in remission Endocrine History: Hypothyroidism Psychological History: Depression Other History Of: Negative For: HIV, Hepatitis B, Hepatitis C, Anticoagulant Therapy - Surgical History Surgical History: Yes Surgery Procedure, Year, and Place: Hx of one C-sec 2 vaginal births - Family History Known Family History: Positive: None Negative: Cardiac Disease, Hypertension, Blood Disorder - Social History Occupation: Unemployed Lives: With Family Alcohol Use: None Substance Use Type: None Substance Use Comment - Amount & Last Used: hx of substance abuse, "anything I could get my hands on...meth..." Smoking Status (MU): Light Every Day Tobacco Smoker Amount Used/How Often: 4 per day Have You Smoked in the Last Year: Yes Household Exposure Type: Cigarettes Cessation Counseling: Counseled 3+Min - 10 Min - Immunization History Most Recent Influenza Vaccination: fall 2015 Most Recent Tetanus Shot: years Most Recent Pneumonia Vaccination: never Review of Systems Constitutional: Negative Skin: Negative Eyes: Negative ENT: Dental Pain, Sore Throat Respiratory: Negative Cardiovascular: Negative Gastrointestinal: Negative Genitourinary: Negative Motor: Negative Neurovascular: Negative Musculoskeletal: Negative Neurological: Negative Psychological: Negative Is Patient Immunocompromised?: No All Other Systems Reviewed And Are Negative: Yes Physical Exam Triage Information Reviewed: Yes Appearance: Well-Appearing, Well-Nourished, Thin Vital Signs: Initial Vital Signs Temp 98 F 09/08/17 09:44 Pulse 74 09/08/17 09:44 Resp 16 09/08/17 09:44 Pulse Ox 100 09/08/17 09:44 Vital Signs Reviewed: Yes Eye Exam: Normal Eyes: Positive: Conjunctiva Clear ENT Exam: Normal ENT: Positive: Normal ENT inspection, Hearing grossly normal, Pharynx normal, TMs normal, Uvula midline. Negative: Nasal congestion, Nasal drainage, Tonsillar swelling, Tonsillar exudate, Trismus, Muffled voice, Hoarse voice, Sinus tenderness Dental Exam: Other Dental: Positive: Gross Decay/Caries @ Neck exam: Normal Neck: Positive: Supple, Nontender, No Lymphadenopathy Respiratory Exam: Normal Respiratory: Positive: Chest non-tender, Lungs clear, Normal breath sounds, No respiratory distress, No accessory muscle use Cardiovascular Exam: Normal Cardiovascular: Positive: RRR, No Murmur, Pulses Normal, Brisk Capillary Refill Musculoskeletal Exam: Normal Musculoskeletal: Positive: Strength Intact, ROM Intact Neurological Exam: Normal Neurological: Positive: Alert, Muscle Tone Normal Psychological Exam: Normal Psychological: Positive: Normal Response To Family, Age Appropriate Behavior Skin Exam: Normal Throat Pain/Nasal Course/Dx - Course Assessment/Plan: tylenol, ibuprofen, gargles, increase fluids follow with pcp prn - Differential Dx/Diagnosis Provider Diagnoses: Pharyngitis, dental caries, nicotine dependent Discharge - Discharge Plan Condition: Stable Disposition: HOME Prescriptions: Chlorhexidine MOUTHWASH 0.12%* [Peridex Mouth Wash 0.12%*] 15 ml .SEE ORDER BID #[id number] ml Patient Education Materials: Phenol (By mouth), Pharyngitis (ED), Viral Syndrome (ED) Referrals: Danita Nieves MD [Primary Care Provider] - If Needed
[2017-09-08 10:09] VITALS: BP 104/64
== END 2017-09-08 11:07 | disposition home or self-care (01) ==
LOC: UCEAST 09:39
DX: J02.9 Acute pharyngitis, unspecified (principal); K02.9 Dental caries, unspecified; F17.200 Nicotine dependence, unspecified, uncomplicated
CPT/HCPCS: 87651; 99212; G0463

== ENCOUNTER 2019-04-22 21:12 | Emergency (ER) | payer OTHER ==
[2019-04-22 21:20] VITALS: BP 116/71
== END 2019-04-22 23:17 | disposition left against medical advice (07) ==
LOC: ED 21:12
DX: S49.92XA Unspecified injury of left shoulder and upper arm, initial encounter (principal); X58.XXXA Exposure to other specified factors, initial encounter; Y92.9 Unspecified place or not applicable; Z53.21 Procedure and treatment not carried out due to patient leaving prior to being seen by health care provider

== ENCOUNTER 2019-07-04 14:41 | Inpatient (IN) | payer OTHER ==
[2019-07-04 16:08] LABS: ABS Basophils 0.1 10^3/ul (0-0.2); ABS Eosinophils 0.2 10^3/ul (0-0.6); ABS Lymphocytes 2.6 10^3/ul (1.0-4.8); ABS Monocytes 0.4 10^3/ul (0-0.8); ABS Neutrophils 2.1 10^3/ul (1.5-7.7); Eosinophil % 4.1 %; Hematocrit 43 % (35-47); Hemoglobin 14.7 g/dL (12.0-16.0); Lymphocyte % 48.3 %; Mean Corpuscular HGB Conc 34 g/dL (31-36); Mean Corpuscular Hemoglobin 32 pg (27-31); Mean Corpuscular Volume 93 fL (80-97); Mean Platelet Volume 8.7 fL (7.4-10.4); Nucleated Red Blood Cells % 0.1; Platelet Count 164 10^3/uL (150-450); Red Cell Distribution Width 13 % (10-15); White Blood Count 5.3 10^3/uL (3.5-10.8)
[2019-07-04 16:33] LABS: ALT 11 U/L (7-52); AST 14 U/L (13-39); Albumin 4.4 g/dL (3.2-5.2); Albumin/Globulin Ratio 1.5 (1-3); Alkaline Phosphatase 41 U/L (34-104); Anion Gap 4 mmol/L (2-11); BUN/Creatinine Ratio 13.9 (8-20); Blood Urea Nitrogen 10 mg/dL (6-24); CO2 Carbon Dioxide 27 mmol/L (22-32); Calcium 9.1 mg/dL (8.6-10.3); Chloride 109 mmol/L (101-111); EGFR African American 119.4 (>60); EGFR Non-African American 98.7 (>60); Globulin 2.9 g/dL (2-4); Glucose 82 mg/dL (70-100); Potassium 3.9 mmol/L (3.5-5.0); Sodium 140 mmol/L (135-145); Total Protein 7.3 g/dL (6.4-8.9)
[2019-07-04 16:38] LABS: Urine Appearance Cloudy; Urine Bacteria Absent (Absent); Urine Bilirubin Negative (Negative); Urine Blood Negative (Negative); Urine Color Yellow; Urine Glucose Negative (Negative); Urine Ketones Negative (Negative); Urine Nitrite Negative (Negative); Urine Protein Negative (Negative); Urine Red Blood Cell Absent (Absent); Urine Specific Gravity 1.014 (1.010-1.030); Urine Squamous Epithelial Cell Present (Absent); Urine Urobilinogen Negative (Negative); Urine White Blood Cell Trace(0-5/hpf) (Absent)
--- NOTE | 2019-07-04 16:45 | ED ---
Psychiatric Complaint - HPI Summary HPI Summary: Patient is a 23-year-old female presenting to the ED with suicidal and homicidal thoughts. She states "if I don't come myself am going to, mother, it either/or." And asked if she is suicidal at this time, she states "very much so." She has a history of suicide and depression. She denies any recent self- harm. She denies any drug or alcohol use. She has not followed up with a psychiatrist. She denies any pain. She denies other symptoms. - History Of Current Complaint Chief Complaint: EDSuicidal Time Seen by Provider: 07/04/19 15:24 Hx Obtained From: Patient Hx Last Menstrual Period: breast feeding ?: No Onset/Duration: Sudden Onset Timing: Constant Severity Initially: Moderate Severity Currently: Moderate Character: Depressed, Fearful Aggravating Factor(s): Nothing Alleviating Factor(s): Nothing Associated Signs And Symptoms: Positive: Negative Has Suicidal: Reports: Thoughts, With A Plan Has Homicidal: Reports: Thoughts, With A Plan - Allergies/Home Medications Allergies/Adverse Reactions: Allergies Allergy/AdvReac Type Severity Reaction Status Date / Time amoxicillin Allergy Hives Verified 07/04/19 22:20 Home Medications: Home Medications Levothyroxine Sodium 112 mcg PO DAILY 07/04/19 [History Confirmed 07/04/19] PMH/Surg Hx/FS Hx/Imm Hx Previously Healthy: Yes Endocrine/Hematology History: Reports: Hx Thyroid Disease - hosimotos Denies: Hx Anticoagulant Therapy, Hx Diabetes Cardiovascular History: Denies: Hx Congestive Heart Failure, Hx Deep Vein Thrombosis, Hx Hypertension , Hx Myocardial Infarction, Hx Pacemaker/ICD Respiratory History: Denies: Hx Asthma, Hx Chronic Obstructive Pulmonary Disease (COPD), Hx Lung Cancer, Hx Pneumonia, Hx Pulmonary Embolism GI History: Denies: Hx Gall Bladder Disease, Hx Gastrointestinal Bleed, Hx Ulcer, Hx Urosepsis History: Reports: Other Problems/Disorders - Hx of UTI Denies: Hx Kidney Stones, Hx Renal Disease Neurological History: Reports: Other Neuro Impairments/Disorders - Hx of Asperger Denies: Hx Dementia, Hx Migraine, Hx Seizures, Hx Transient Ischemic Attacks (TIA) Psychiatric History: Reports: Hx Anxiety - Rx neurontin, Hx Attention Deficit Hyperactivity Disorder, Hx Eating Disorder - restricting, Hx Depression - Rx zoloft, Hx Community Mental Health Tx - Sees Anya Maki and Dr. Mendez at [facility], Hx Substance Abuse, Other Psychiatric Issues/Disorders - aspergers Denies: Hx Schizophrenia, Hx Bipolar Disorder, Hx of Violent Episodes Against Others - Surgical History Surgery Procedure, Year, and Place: Hx of one C-sec 2 vaginal births - Immunization History Date of Influenza Vaccine: 06/2016 Hx Pertussis Vaccination: No Immunizations Up to Date: Yes Infectious Disease History: No Infectious Disease History: Denies: Hx Clostridium Difficile, Hx Hepatitis, Hx Human Immunodeficiency Virus (HIV), Hx of Known/Suspected MRSA, Hx Shingles, Hx Tuberculosis, Hx Known/ Suspected VRE, Hx Known/Suspected VRSA, History Other Infectious Disease, Traveled Outside the [place] in Last 30 Days - Family History Known Family History: Positive: None Negative: Cardiac Disease, Hypertension, Blood Disorder - Social History Occupation: Unemployed Lives: With Family Alcohol Use: None Hx Substance Use: No Substance Use Type: Reports: None Substance Use Comment - Amount & Last Used: hx of substance abuse, "anything I could get my hands on...meth..." Hx Tobacco Use: Yes Smoking Status (MU): Light Every Day Tobacco Smoker Amount Used/How Often: 4 per day Have You Smoked in the Last Year: Yes Review of Systems Negative: Fever, Chills, Fatigue, Skin Diaphoresis Negative: Palpitations, Chest Pain Negative: Shortness Of Breath, Cough Genitourinary: Negative Positive: no symptoms reported, see HPI Negative: Arthralgia, Myalgia Skin: Negative Neurological: Negative Positive: Anxious, Depressed All Other Systems Reviewed And Are Negative: Yes Physical Exam Triage Information Reviewed: Yes Vital Signs On Initial Exam: Initial Vitals Temp Pulse Resp BP Pulse Ox 97.5 F 73 16 122/67 100 07/04/19 14:55 07/04/19 14:55 07/04/19 14:55 07/04/19 14:55 07/04/19 14:55 Vital Signs Reviewed: Yes Appearance: Positive: Well-Appearing, Well-Nourished Skin: Positive: Skin Color Reflects Adequate Perfusion Head/Face: Positive: Normal Head/Face Inspection Eyes: Positive: EOMI, Conjunctiva Clear Neck: Positive: Supple Respiratory/Lung Sounds: Positive: Clear to Auscultation, Breath Sounds Present Cardiovascular: Positive: RRR, Pulses are Symmetrical in both Upper and Lower Extremities Musculoskeletal: Positive: Normal, Strength/ROM Intact Neurological: Positive: Sensory/Motor Intact Psychiatric: Positive: Anxious, Depressed AVPU Assessment: Alert Diagnostics - Vital Signs Vital Signs Temp Pulse Resp BP Pulse Ox 07/04/19 14:55 97.5 F 73 16 122/67 100 - Laboratory Lab Results: Lab Results 07/04/19 07/04/19 Range/Units 15:48 15:48 WBC 5.3 (3.5-10.8) 10^3/uL RBC 4.60 (3.70-4.87) 10^6 /uL Hgb 14.7 (12.0-16.0) g/dL Hct 43 (35-47) % MCV 93 (80-97) fL MCH 32 H (27-31) pg MCHC 34 (31-36) g/dL RDW 13 (10-15) % Plt Count 164 (150-450) 10^3/uL MPV 8.7 (7.4-10.4) fL Neut % (Auto) 38.9 % Lymph % (Auto) 48.3 % Ritchie % (Auto) 7.6 % Eos % (Auto) 4.1 % Baso % (Auto) 1.1 % Absolute Neuts (auto) 2.1 (1.5-7.7) 10^3/ul Absolute Lymphs (auto) 2.6 (1.0-4.8) 10^3/ul Absolute Monos (auto) 0.4 (0-0.8) 10^3/ul Absolute Eos (auto) 0.2 (0-0.6) 10^3/ul Absolute Basos (auto) 0.1 (0-0.2) 10^3/ul Absolute Nucleated RBC 0.0 10^3/ul Nucleated RBC % 0.1 Sodium 140 (135-145) mmol/L Potassium 3.9 (3.5-5.0) mmol/L Chloride 109 (101-111) mmol/L Carbon Dioxide 27 (22-32) mmol/L Anion Gap 4 (2-11) mmol/L BUN 10 (6-24) mg/dL Creatinine 0.72 (0.51-0.95) mg/dL Est GFR ( Amer) 119.4 (>60) Est GFR (Non-Af Amer) 98.7 (>60) BUN/Creatinine Ratio 13.9 (8-20) Glucose 82 (70-100) mg/dL Calcium 9.1 (8.6-10.3) mg/dL Total Bilirubin 0.60 (0.2-1.0) mg/dL AST 14 (13-39) U/L ALT 11 (7-52) U/L Alkaline Phosphatase 41 (34-104) U/L Total Protein 7.3 (6.4-8.9) g/dL Albumin 4.4 (3.2-5.2) g/dL Globulin 2.9 (2-4) g/dL Albumin/Globulin Ratio 1.5 (1-3) TSH Pending Salicylates Pending Acetaminophen Pending Serum Alcohol Pending Result Diagrams: 07/04/19 15:48 07/04/19 15:48 Lab Statement: Any lab studies that have been ordered have been reviewed, and results considered in the medical decision making process. Course/Dx - Course Course Of Treatment: Patient is evaluated for suicidal and homicidal thoughts. She is placed on constant observation immediately on arrival. Labs are obtained are WNL. She is medically cleared and currently awaiting into health evaluation. She is signed out to [facility] awaiting evaluation. - Differential Dx/Clinical Impression Differential Diagnosis/HQI/PQRI: Positive: Homicidal Gesture, Suicidal Ideation Provider Diagnosis: Suicidal ideation, Homicidal ideation Discharge ED - Sign-Out/Discharge Documenting (check all that apply): Sign-Out Patient Signing out patient TO: Fausto Mims Patient Received Moderate/Deep Sedation with Procedure: No - [facility]charge [facility] [place] and Condition Disposition: [place] [facility] [place]
[2019-07-04 17:13] LABS: Acetaminophen < 15 mcg/mL; Alcohol < 10 mg/dL (<10); Salicylate < 2.50 mg/dL (<30)
[2019-07-04 17:18] LABS: TSH (Thyroid Stimulating Horm) 12.34 mcIU/mL (0.34-5.60)
[2019-07-04 20:11] LABS: Urine Benzodiazepine Screen None Detected (None Detect); Urine Opiates Screen None Detected (None Detect)
[2019-07-04] MEDS ORDERED: Acetaminophen TAB* 325 MG PO PRN (21:36)
[2019-07-04] MEDS ORDERED: Nicotine* 2MG (FRUIT FLAVOR) GUM PO PRN (21:37)
[2019-07-04] MEDS ORDERED: Al Hydrox/Mg Hydrox/Simet LIQ* 30 ML UDC PO PRN (21:37)
[2019-07-05] MEDS: Multivitamins/Minerals TAB PO SCH (10:37)
[2019-07-05] MEDS: Nicotine PATCH 21 MG/24 HR* PATCH TRANSDERM SCH (10:37)
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
[2019-07-05 12:17] LABS: HCG Pregnancy < 0.60 mIU/mL
[2019-07-05 12:28] LABS: Free T4 0.76 ng/dL (0.61-1.12)
[2019-07-05] MEDS ORDERED: Venlafaxine EXT RELEASE CAP* 37.5 MG PO ONE (14:47)
[2019-07-05] MEDS: ARIPiprazole TAB* 5 MG PO SCH (15:39)
[2019-07-05] MEDS: Nicotine Patch Removal NOTE PATCH OFF SCH (21:10)
[2019-07-06] MEDS: Levothyroxine TAB* 112 MCG TAB PO SCH (06:24)
--- NOTE | 2019-07-06 08:35 | PN ---
Subjective - Subjective Date of Service: 07/06/19 Service Type: 69260 Hosp care 35 min high complexity Subjective: Nursing Report: Patient was visible on unit, no behavioral incidents. Slept overnight. CC: "Okay Patient was seen and evaluated today in the common room. The patient reported she feels safe at home and did not have concerns of safety. She reported that her fiancee visited last night and that the visit went well. She reported eating dinner. She reported waking up many times in her sleep. She reported having an diminished appetite. Per nursing no behavioral issues or overnight events reported. Patient reported that she is tolerating medications without side effects. Objective - General Observations Appears Stated Age: Yes Stature: Thin Posture: WNL Eye Contact: Average Behavior/Activity: WNL - Interaction Observations Attitude Towards Examiner: Cooperative Stated Mood: Dysphoric Affect: Blunted Speech Pattern/Tone: Quiet Volume Thought Process: Coherent Perception: WNL Thought Content: Preoccupation/Ruminations Thought Process: Lethality: Suicidal Planning Hallucination Type: Auditory Delusion Type: None - Cognitive Function Orientation: A&O x 4 Level of Consciousness: Awake - Medication Compliance Cooperative with Inpatient Medication Regimen: Yes - Group Participation Participates in Group Activities: No Assessment - Assessment Merits Inpatient Hospitalization: For Immediate Safety Clinical Impression: 23 year old female with history of depression came to the hospital with suicidal ideation with the plan to end her life and was admitted to the B[facility] at [facility]. Plan - Plan Treatment Plan: Name: FRANTZ SANTOYO Birthdate: 1995 [id number] # Q15 minute observation. # The patient requires psychiatric inpatient admission at this time to assure safety, receive treatment and work toward stabilization. # B-HCG was ordered and results are negative. # Obtain collateral information once release is signed. # Collaboration with Social Work #EKG ordered for QTc prolongation # Continue Effexor 75mg daily for depression and Abilify 5mg daily for mood # Encourage food and fluid intake Tobacco use disorder: nicotine supplement offered and put in place. #Goals before discharge include: To eliminate/ reduce suicidal ideation Tentative Discharge: Pending psychiatric stabilization Vital Signs Temp Pulse Resp BP Pulse Ox 97.5 F 66 16 105/65 100 07/05/19 11:27 07/05/19 11:27 07/05/19 15:01 07/05/19 11:27 07/05/19 11:27 Sodium 140 mmol/L (135-145) 07/04/19 15:48 Potassium 3.9 mmol/L (3.5-5.0) 07/04/19 15:48 BUN 10 mg/dL (6-24) 07/04/19 15:48 Creatinine 0.72 mg/dL (0.51-0.95) 07/04/19 15:48 Calcium 9.1 mg/dL (8.6-10.3) 07/04/19 15:48 AST 14 U/L (13-39) 07/04/19 15:48 ALT 11 U/L (7-52) 07/04/19 15:48 Continued Medication Management: Continue Outpt Medication Medications: Current Medications Acetaminophen (Tylenol Tab*) 650 mg PO Q4H PRN PRN Reason: PAIN; OR TEMP >101 Last Admin: 07/06/19 06:24 Dose: 650 mg Al Hydrox/Mg Hydrox/Simethicone (Maalox Plus*) 30 ml PO Q4H PRN PRN Reason: INDIGESTION Aripiprazole (Abilify Tab*) 5 mg PO DAILY [facility] Last Admin: 07/05/19 15:39 Dose: 5 mg Levothyroxine Sodium (Synthroid Tab*) 112 mcg PO DAILY@0600 [facility] Last Admin: 07/06/19 06:24 Dose: 112 mcg Multivitamins/Minerals (Theragran/Minerals Tab*) 1 tab PO DAILY [facility] Last Admin: 07/05/19 10:37 Dose: 1 tab Nicotine (Nicotine Patch 21 Mg/24 Hr*) 1 patch TRANSDERM QAM [facility] Last Admin: 07/05/19 10:37 Dose: 1 patch Nicotine Polacrilex (Nicotine Gum*) 2 mg PO Q2H PRN PRN Reason: CRAVING Pharmacy Profile Note (Nicotine Patch Removal Note*) 1 note PATCH OFF 2100 [facility] Last Admin: 07/05/19 21:10 Dose: 1 note Venlafaxine HCl (Effexor Xr Cap*) 75 mg PO DAILY [facility] - Discharge Plan Discharge Plan: Inpatient Hospitalization Outpatient Program: [facility]
[2019-07-06 09:04] LABS: HDL Cholesterol 48.7 mg/dL
[2019-07-06] MEDS: Venlafaxine EXT RELEASE CAP* 75 MG PO SCH (10:06)
[2019-07-06] MEDS: ARIPiprazole TAB* 5 MG PO SCH (10:06)
[2019-07-06] MEDS: Nicotine PATCH 21 MG/24 HR* PATCH TRANSDERM SCH (10:07)
[2019-07-06] MEDS: Multivitamins/Minerals TAB PO SCH (10:07)
[2019-07-06] MEDS: Nicotine Patch Removal NOTE PATCH OFF SCH (22:14)
[2019-07-07] MEDS: ARIPiprazole TAB* 5 MG PO SCH (08:45)
[2019-07-07] MEDS: Levothyroxine TAB* 112 MCG TAB PO SCH (08:45)
[2019-07-07] MEDS: Multivitamins/Minerals TAB PO SCH (08:46)
[2019-07-07] MEDS: Venlafaxine EXT RELEASE CAP* 75 MG PO SCH (08:46)
[2019-07-07] MEDS: Nicotine PATCH 21 MG/24 HR* PATCH TRANSDERM SCH (08:46)
--- NOTE | 2019-07-07 16:00 | PN ---
Subjective - Subjective Date of Service: 07/07/19 Service Type: 96733 Hosp care 25 min moderate complexity Subjective: Leslie is still depressed but denies SI. She wants her mother be because of wanting to take her children away from her. Her personal living situation, finances and relationships are the reasons for her mother to take custody of her children. Living with her fiance is also unsafe due to drugs. Ate lunch today. Denies psychosis. Objective - General Observations Appearance: Unkempt Stature: Thin, Tall Posture: WNL Eye Contact: Avoidant Behavior/Activity: Slowed - Interaction Observations Attitude Towards Examiner: Cooperative Stated Mood: Dysphoric Affect: Blunted Speech Pattern/Tone: Clear, Quiet Volume Thought Process: Coherent, Circumstantial Perception: WNL Thought Content: Depressive Thought Process: Lethality: Passive Wish Hallucination Type: Denies Delusion Type: Denies - Cognitive Function Orientation: A&O x 4 Level of Consciousness: Awake, Alert Cognition: WNL Estimated Intelligence: Normal Insight: Mostly Blames Others for Problems Judgment Within Normal Limits: No Ability to Make Reasonable Decisions: Serverely Impaired - Medication Compliance Cooperative with Inpatient Medication Regimen: Yes - Group Participation Participates in Group Activities: No Assessment - Assessment Merits Inpatient Hospitalization: For Immediate Safety, For Stabilization, Pending Safe DC Plan Clinical Impression: 23 year old female with history of depression came to the hospital with suicidal ideation with the plan to end her life and was admitted to the BSU at [facility]. Plan - Plan Treatment Plan: Name: LESLIE SANTOYO Birthdate: 1995 [id number] # Q15 minute observation. # The patient requires psychiatric inpatient admission at this time to assure safety, receive treatment and work toward stabilization. # B-HCG was ordered and results are negative. # Obtain collateral information once release is signed. # Collaboration with Social Work #EKG ordered for QTc prolongation # Continue Effexor 75mg daily for depression and Abilify 5mg daily for mood # Encourage food and fluid intake Tobacco use disorder: nicotine supplement offered and put in place. #Goals before discharge include: To eliminate/ reduce suicidal ideation Tentative Discharge: Pending psychiatric stabilization Vital Signs Temp Pulse Resp BP Pulse Ox 97.5 F 66 16 105/65 100 07/05/19 11:27 07/05/19 11:27 07/05/19 15:01 07/05/19 11:27 07/05/19 11:27 Sodium 140 mmol/L (135-145) 07/04/19 15:48 Potassium 3.9 mmol/L (3.5-5.0) 07/04/19 15:48 BUN 10 mg/dL (6-24) 07/04/19 15:48 Creatinine 0.72 mg/dL (0.51-0.95) 07/04/19 15:48 Calcium 9.1 mg/dL (8.6-10.3) 07/04/19 15:48 AST 14 U/L (13-39) 07/04/19 15:48 ALT 11 U/L (7-52) 07/04/19 15:48 Continued Medication Management: Continue Outpt Medication Medications: Current Medications Acetaminophen (Tylenol Tab*) 650 mg PO Q4H PRN PRN Reason: PAIN; OR TEMP >101 Last Admin: 07/06/19 06:24 Dose: 650 mg Al Hydrox/Mg Hydrox/Simethicone (Maalox Plus*) 30 ml PO Q4H PRN PRN Reason: INDIGESTION Aripiprazole (Abilify Tab*) 5 mg PO DAILY [facility] Last Admin: 07/07/19 08:45 Dose: 5 mg Levothyroxine Sodium (Synthroid Tab*) 112 mcg PO DAILY@0600 [facility] Last Admin: 07/07/19 08:45 Dose: 112 mcg Multivitamins/Minerals (Theragran/Minerals Tab*) 1 tab PO DAILY [facility] Last Admin: 07/07/19 08:46 Dose: 1 tab Nicotine (Nicotine Patch 21 Mg/24 Hr*) 1 patch TRANSDERM QAM [facility] Last Admin: 07/07/19 08:46 Dose: Not Given Nicotine Polacrilex (Nicotine Gum*) 2 mg PO Q2H PRN PRN Reason: CRAVING Pharmacy Profile Note (Nicotine Patch Removal Note*) 1 note PATCH OFF 2100 [facility] Last Admin: 07/06/19 22:14 Dose: Not Given Venlafaxine HCl (Effexor Xr Cap*) 75 mg PO DAILY [facility] Last Admin: 07/07/19 08:46 Dose: 75 mg - Discharge Plan Discharge Plan: Outpatient Follow Up Outpatient Program: [facility]
[2019-07-07] MEDS: Nicotine Patch Removal NOTE PATCH OFF SCH (19:41)
[2019-07-08] MEDS ORDERED: Influenza VAC *QUAD* 2019-20* 0.5 ML SYRINGE IM ONE (09:00)
[2019-07-08] MEDS: Levothyroxine TAB* 112 MCG TAB PO SCH (09:23)
[2019-07-08] MEDS: ARIPiprazole TAB* 5 MG PO SCH (09:23)
[2019-07-08] MEDS: Multivitamins/Minerals TAB PO SCH (09:23)
[2019-07-08] MEDS: Venlafaxine EXT RELEASE CAP* 75 MG PO SCH (09:23)
[2019-07-08] MEDS: Nicotine PATCH 21 MG/24 HR* PATCH TRANSDERM SCH (09:24)
[2019-07-08] MEDS: Nicotine Patch Removal NOTE PATCH OFF SCH (20:05)
[2019-07-09] MEDS: Levothyroxine TAB* 112 MCG TAB PO SCH (06:45)
[2019-07-09] MEDS: Venlafaxine EXT RELEASE CAP* 75 MG PO SCH (09:07)
[2019-07-09] MEDS: ARIPiprazole TAB* 5 MG PO SCH (09:07)
[2019-07-09] MEDS: Nicotine PATCH 21 MG/24 HR* PATCH TRANSDERM SCH (09:08)
[2019-07-09] MEDS: Multivitamins/Minerals TAB PO SCH (09:08)
--- NOTE | 2019-07-09 10:50 | PN ---
Subjective - Subjective Date of Service: 07/09/19 Service Type: 71240 Hosp care 35 min high complexity Subjective: Nursing Report: Patient was visible on unit, no behavioral incidents. Slept overnight. CC: "Okay" Patient was seen and evaluated in the common room. Patient is concerned that she wont be able to get her children back from her mother because she doesn't have a house large enough to them to stay at. The patient reported she feels safe on the unit and is interacting with peers. She reported having adequate sleep. She doesn't eat much because her teeth bother her. The patient reported attending and participating in day groups. Per nursing no behavioral issues or overnight events reported. Patient reported that she is tolerating medications without side effects. This card writer hand met with her fiancee during the afternoon. He remarked that she is at her baseline and feels that she would be safe to be discharged however he may have a motive in her discharge. She provided a release of information for her father and sister. He denied access to firearms or stockpiles of medications at home. Objective - General Observations Appearance: Disheveled Appears Stated Age: Yes Stature: Thin Posture: WNL Eye Contact: Average Behavior/Activity: WNL - Interaction Observations Attitude Towards Examiner: Cooperative Stated Mood: Dysphoric Affect: Blunted Speech Pattern/Tone: Clear Thought Process: Coherent Perception: WNL Thought Content: WNL Hallucination Type: None Delusion Type: None - Cognitive Function Orientation: A&O x 4 Level of Consciousness: Awake - Medication Compliance Cooperative with Inpatient Medication Regimen: Yes - Group Participation Participates in Group Activities: Partial Assessment - Assessment Merits Inpatient Hospitalization: For Immediate Safety Clinical Impression: 23 year old female with history of depression came to the hospital with suicidal ideation with the plan to end her life and was admitted to the BSU at [facility]. Plan - Plan Treatment Plan: Name: FRANTZ SANTOYO Birthdate: 1995 [id number] # Q30 minute observation with staff pass. # The patient requires psychiatric inpatient admission at this time to assure safety, receive treatment and work toward stabilization. # B-HCG was ordered and results are negative. # Obtain collateral information once release is signed. # Collaboration with Hydraulic Press Tender Kike #EKG ordered for QTc prolongation # Continue Effexor 75mg daily for depression and Abilify 5mg daily for mood # Encourage food and fluid intake # Father Tony [phone] # Anette Alarcon [phone] # Collateral obtained from her anette Tobacco use disorder: nicotine supplement offered and put in place. #Goals before discharge include: To eliminate/ reduce suicidal ideation Tentative Discharge: Pending Sodium 140 mmol/L (135-145) 07/04/19 15:48 Potassium 3.9 mmol/L (3.5-5.0) 07/04/19 15:48 BUN 10 mg/dL (6-24) 07/04/19 15:48 Creatinine 0.72 mg/dL (0.51-0.95) 07/04/19 15:48 Hemoglobin A1c 5.2 % (4.0-5.6) 07/06/19 08:29 Calcium 9.1 mg/dL (8.6-10.3) 07/04/19 15:48 AST 14 U/L (13-39) 07/04/19 15:48 ALT 11 U/L (7-52) 07/04/19 15:48 Triglycerides 57 mg/dL 07/06/19 08:29 Cholesterol 130 mg/dL 07/06/19 08:29 LDL Cholesterol 70 mg/dL 07/06/19 08:29 Continued Medication Management: Continue Outpt Medication Medications: Current Medications Acetaminophen (Tylenol Tab*) 650 mg PO Q4H PRN PRN Reason: PAIN; OR TEMP >101 Last Admin: 07/06/19 06:24 Dose: 650 mg Al Hydrox/Mg Hydrox/Simethicone (Maalox Plus*) 30 ml PO Q4H PRN PRN Reason: INDIGESTION Aripiprazole (Abilify Tab*) 5 mg PO DAILY [facility] Last Admin: 07/09/19 09:07 Dose: 5 mg Levothyroxine Sodium (Synthroid Tab*) 112 mcg PO DAILY@0600 [facility] Last Admin: 07/09/19 06:45 Dose: 112 mcg Multivitamins/Minerals (Theragran/Minerals Tab*) 1 tab PO DAILY [facility] Last Admin: 07/09/19 09:08 Dose: 1 tab Nicotine (Nicotine Patch 21 Mg/24 Hr*) 1 patch TRANSDERM QAM [facility] Last Admin: 07/09/19 09:08 Dose: Not Given Nicotine Polacrilex (Nicotine Gum*) 2 mg PO Q2H PRN PRN Reason: CRAVING Pharmacy Profile Note (Nicotine Patch Removal Note*) 1 note PATCH OFF 2099 [facility] Last Admin: 07/08/19 20:05 Dose: Not Given Venlafaxine HCl (Effexor Xr Cap*) 75 mg PO DAILY [facility] Last Admin: 07/09/19 09:07 Dose: 75 mg - Discharge Plan Discharge Plan: Inpatient Hospitalization Outpatient Program: [facility]
[2019-07-09] MEDS: Nicotine Patch Removal NOTE PATCH OFF SCH (19:09)
[2019-07-10] MEDS: Levothyroxine TAB* 112 MCG TAB PO SCH (07:24)
[2019-07-10 08:02] VITALS: BP 110/74
[2019-07-10] MEDS: Venlafaxine EXT RELEASE CAP* 75 MG PO SCH (08:48)
[2019-07-10] MEDS: ARIPiprazole TAB* 5 MG PO SCH (08:48)
[2019-07-10] MEDS: Multivitamins/Minerals TAB PO SCH (08:48)
[2019-07-10] MEDS: Nicotine PATCH 21 MG/24 HR* PATCH TRANSDERM SCH (08:48)
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
== END 2019-07-10 11:45 | disposition home or self-care (01) | DRG 751 ==
LOC: ED 14:41 → BSU 20:12
PROVIDERS: ADMIT Psychiatry & Neurology Psychiatry; ATTEND Psychiatry & Neurology Psychiatry
DX: F32.3 Major depressive disorder, single episode, severe with psychotic features (principal); R45.851 Suicidal ideations; F17.210 Nicotine dependence, cigarettes, uncomplicated; Z62.810 Personal history of physical and sexual abuse in childhood; F43.10 Post-traumatic stress disorder, unspecified; E06.3 Autoimmune thyroiditis; R45.850 Homicidal ideations; F41.9 Anxiety disorder, unspecified; F90.9 Attention-deficit hyperactivity disorder, unspecified type; F50.82 Avoidant/restrictive food intake disorder; Z68.21 Body mass index [BMI] 21.0-21.9, adult; Z91.5 Personal history of self-harm; Z81.4 Family history of other substance abuse and dependence; Z88.0 Allergy status to penicillin; Z87.440 Personal history of urinary (tract) infections; Z56.0 Unemployment, unspecified; Z23 Encounter for immunization
CPT/HCPCS: 36415; 80053; 80061; 80307; 80320; 80329; 81003; 81015; 83036; 84439; 84443; 84702; 85025; 87077; 87086; 87186; 90686; 93005; 99222; 99232; 99233; 99238; 99285; A9270-GY; G0480

== ENCOUNTER 2019-07-27 19:08 | Emergency (ER) | payer OTHER ==
[2019-07-27 19:13] VITALS: BP 153/92
== END 2019-07-27 21:05 | disposition left against medical advice (07) ==
LOC: ED 19:08
DX: R51 Headache (principal); Z53.21 Procedure and treatment not carried out due to patient leaving prior to being seen by health care provider
CPT/HCPCS: 99281

== ENCOUNTER 2019-08-18 23:03 | Emergency (ER) | payer SELFPAY ==
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
[2019-08-19 00:40] VITALS: BP 118/66
== END 2019-08-19 00:45 | disposition home or self-care (01) ==
LOC: ED 23:03
DX: S60.512A Abrasion of left hand, initial encounter (principal); S60.511A Abrasion of right hand, initial encounter; M25.531 Pain in right wrist; J34.89 Other specified disorders of nose and nasal sinuses; V48.5XXA Car driver injured in noncollision transport accident in traffic accident, initial encounter; Y92.410 Unspecified street and highway as the place of occurrence of the external cause; F41.9 Anxiety disorder, unspecified; F90.9 Attention-deficit hyperactivity disorder, unspecified type; F32.9 Major depressive disorder, single episode, unspecified; F17.200 Nicotine dependence, unspecified, uncomplicated; Z79.899 Other long term (current) drug therapy; Z88.0 Allergy status to penicillin
CPT/HCPCS: 70160; 99283

== ENCOUNTER → 2019-09-02 02:11 | Emergency (ER) | payer OTHER ==
[2019-09-02 03:55] VITALS: BP 0/0
== END | disposition home or self-care (01) ==
LOC: ED 02:11
DX: K08.89 Other specified disorders of teeth and supporting structures (principal)